=== PATIENT | female | born 1950 | race Two or more races ===

== ENCOUNTER 2024-06-15 05:24 | Day surgery (SDC) | payer OTHER ==
[2024-06-10 12:44] VITALS: BMI 23.0
[~2024-06-15 05:24] MED LIST: ACETAMINOPHEN 325 MG TABLET (FP) PO PRN
[2024-06-15] MEDS ORDERED: KETOROLAC TROMETHAMINE 0.5% EYE DROP 1 DROP DROPS ONE (06:53)
[2024-06-15] MEDS ORDERED: PHENYLEPHRINE 2.5% OPTHALMIC DROP 2ML BOTTLE ONE (06:53)
[2024-06-15] MEDS ORDERED: CYCLOPENTOLATE HCL 1% OPHTH SOLN 2 ML BOTTLE ONE (06:53)
[2024-06-15] MEDS ORDERED: TROPICAMIDE 1% OPHTH SOLN 15 ML BOTTLE ONE (06:53)
[2024-06-15] MEDS ORDERED: OFLOXACIN 0.3% OPHTHALMIC SOLUTION 5 ML BOTTLE ONE (06:53)
[2024-06-15] MEDS: KETOROLAC TROMETHAMINE 0.5% EYE DROP 1 DROP DROPS OP SCH (07:03)
[2024-06-15] MEDS: CYCLOPENTOLATE HCL 1% OPHTH SOLN 2 ML BOTTLE OP SCH (07:03)
[2024-06-15] MEDS: TROPICAMIDE 1% OPHTH SOLN 15 ML BOTTLE OP SCH (07:04)
[2024-06-15] MEDS: PHENYLEPHRINE 2.5% OPHTH SOLN 15 ML BOTTLE OP SCH (07:04)
[2024-06-15] MEDS: OFLOXACIN 0.3% OPHTHALMIC SOLUTION 5 ML BOTTLE OP SCH (07:05)
[2024-06-15] MEDS ORDERED: LIDOCAINE HCL/PF 1% SDV 5ML VIAL ONE (07:35)
[2024-06-15] MEDS ORDERED: EPINEPHrine 1:1000 P/F - 1 MG/ML AMP ONE (07:35)
[2024-06-15] MEDS ORDERED: POVIDONE-IODINE 5% OPHTHALMIC PREP 30 ML SOLUTION ONE (07:36)
[2024-06-15] MEDS ORDERED: TETRACAINE 0.5% OPHTH SOLN 2 ML BOTTLE ONE (07:36)
[2024-06-15] MEDS ORDERED: VANCOMYCIN 500 MG VIAL (RESTRICTED TO ID ONLY) ONE (07:36)
[2024-06-15] MEDS: TETRACAINE 0.5% OPHTH SOLN 2 ML BOTTLE OS ONE (07:59)
[2024-06-15] MEDS ORDERED: MIDAZOLAM HCL 2 MG/2 ML SINGLE DOSE VIAL ONE (08:00)
[2024-06-15] MEDS: POVIDONE-IODINE 5% OPHTHALMIC PREP 30 ML SOLUTION OS ONE (08:01)
[2024-06-15] MEDS: LIDOCAINE HCL 1% PRESERVATIVE FREE - 30ML VIAL IO ONE (08:09)
[2024-06-15] MEDS: BSS (NA/CA/MG/K) BALANCED SALT SOLUTION OPHTH SOLN 15 ML BOTTLE OS ONE (08:10)
[2024-06-15] MEDS: CHONDROITIN SU A/HYALUR SOD 1 KIT IO ONE (08:11)
[2024-06-15] MEDS: EPINEPHrine 1:1000 P/F - 1 MG/ML AMP IO ONE ×3 (08:19)
[2024-06-15] MEDS: VANCOMYCIN 500 MG VIAL (RESTRICTED TO ID ONLY) IVPB ONE (08:29)
[2024-06-15 08:53] VITALS: RESP 20; TEMP 97.1
[2024-06-15 11:17] VITALS: BP 130/71; PULSE 61
== END 2024-06-15 09:40 | disposition home or self-care (01) ==
LOC: JASU-SURG 05:24
PROVIDERS: ATTEND Ophthalmology
PROC: 08RK3JZ Replacement of Left Lens with Synthetic Substitute, Percutaneous Approach (ICD-10-PCS; principal; 2024-06-15 08:00)
DX: H26.9 Unspecified cataract (principal)
CPT/HCPCS: V2632

== ENCOUNTER 2024-09-06 11:21 | Emergency (ER) | payer OTHER ==
[2024-09-06 11:50] VITALS: BP 130/61; PULSE 63; RESP 19; TEMP 98.1; BMI 24.6
== END 2024-09-06 12:05 | disposition home or self-care (01) ==
LOC: JERFT 11:21
DX: Z48.02 Encounter for removal of sutures (principal)
CPT/HCPCS: 99281-25